=== PATIENT | male | born 1960 | race Caucasian/White ===

== ENCOUNTER 2017-03-23 18:45 | Observation (INO) | payer OTHER ==
[~2017-03-23] VITALS: Ht 182.9 cm; Wt 124.6 kg
[~2017-03-23 18:45] MED LIST: ALBUTEROL17 GM IH; ASPIR-TRIN325 MG PO; ATORVASTATIN CA80 MG PO; CARVEDILOL3.125 MG PO; CHILDREN'S ASPI81 M1 PO; CIPRO500 MG PO; CIPROFLOXACIN500 M1 PO; CLOPIDOGREL75 MG PO; CRESTOR5 MG PO; CYCLOBENZAPRINE10 MG PO; DIAZEPAM10 MG PO; DILAUDID2 MG PO; FLEXERIL10 MG PO; FLOMAX0.4 MG PO; FLUOXETINE HCL10 MG PO; FLUOXETINE HCL20 M1 PO; GABAPENTIN600 MG PO; INDOMETHACIN50 MG PO; LITE COAT ASPI325 M1 PO; LOPRESSOR25 MG PO; LOPRESSOR50 MG PO; MOBIC15 MG PO; NEURONTIN600 MG PO; NITROSTAT0.4 MG SL; OXYCODONE HCL10 MG PO; OXYCODONE HCL30 MG PO; OXYCODONE-APAP1 EACH PO; PERCOCET 10-321 EACH PO; PERCOCET 10/1 TABLET PO; PERCOCET 5-3251 EACH PO; PERCOCET 5/31 TABLET PO; PLAVIX75 MG PO; PROVENTIL HFA6.7 GM IH; PROZAC10 MG PO; STOOL SOFTENER100 MG PO; ULTRAM50 MG PO; VALIUM5 MG PO
[2017-03-23 19:09] LABS: POINT-OF-CARE METER ID UU13113702
[2017-03-23 19:44] LABS: HEMATOCRIT 47.1 % (38.0-50.0); MCH 32.9 PG (29.0-34.0); MCV 93.8 FL (86-99); PLATELET COUNT 224 K/uL (156-360); RBC DIS.WIDTH-CV 12.1 % (11.8-14.6); RBC DIS.WIDTH-SD 41.6 % (39-53); RED BLOOD COUNT 5.02 M/uL (4.00-5.50); WHITE BLOOD COUNT 6.9 K/uL (4.1-10.2)
[2017-03-23 19:55] LABS: CHLORIDE 107 mEq/L (99-109); POTASSIUM 4.3 mEq/L (3.7-5.4); SODIUM 140 mEq/L (136-147)
[2017-03-23 19:57] LABS: GLUCOSE 96 mg/dL (70-99)
[2017-03-23 19:58] LABS: ANION GAP 7 MEQ/L (2-14)
[2017-03-23 20:01] LABS: GFR ESTIMATE (CALCULATED) > 59 mL/min/
[2017-03-23 20:02] LABS: UREA NITROGEN (BUN) 12 mg/dL (9-23)
[2017-03-23 20:04] LABS: TROP-I INTERPRETATION NEGATIVE; TROPONIN-I 0.01 ng/mL (0.0-0.30)
[2017-03-23] MEDS ORDERED: ROXICODONE15 MG PO (22:13)
[2017-03-24 00:29] VITALS: BP 167/95
[2017-03-24 02:42] LABS: TROP-I INTERPRETATION NEGATIVE; TROPONIN-I < 0.01 ng/mL (0.0-0.30)
[2017-03-24 02:55] VITALS: BP 123/68
[2017-03-24 03:05] LABS: HDL CHOLESTEROL 35 MG/DL (Desirable>=40); LDL CHOLESTEROL 88 mg/dL (Desirable<100); NON-HDL CHOLESTEROL 118 mg/dL (Desirable<160); TOTAL CHOLESTEROL 153 mg/dL (Desirable<200); TRIGLYCERIDES 149 MG/DL (Normal: <150)
[2017-03-24 03:40] LABS: ADD MIUA? YES; BILIRUBIN NEGATIVE; BLOOD SMALL; COLOR STRAW ((YELLOW)); GLUCOSE (STRIP) NEGATIVE; KETONES NEGATIVE; LEUKOCYTES NEGATIVE; NITRITE NEGATIVE; PROTEIN (STRIP) NEGATIVE; SPECIFIC GRAVITY 1.004 (1.000-1.030); UROBILINOGEN 0.2 MG/DL (0.2-1.0)
[2017-03-24 03:41] LABS: AMPHETAMINES QUANT VALUE 0 NG/ML; BARBITUATES QUANT VALUE 0 NG/ML; BENZODIAZEPINES QUANT VALUE 0 NG/ML; BENZODIAZEPINES, URINE SCREEN Negative (200 ng/mL); PHENCYCLIDINE QUANT VALUE 0 NG/ML
[2017-03-24 03:50] LABS: BACTERIA NONE SEEN /HPF; EPITHELIAL CELLS RARE /HPF; MUCUS NONE SEEN /LPF; UCUL ADDED? NO; WHITE BLOOD CELLS 0-5 /HPF (0-5)
[2017-03-24 08:47] VITALS: BP 128/65
[2017-03-24 09:02] LABS: TROP-I INTERPRETATION NEGATIVE; TROPONIN-I < 0.01 ng/mL (0.0-0.30)
[2017-03-24] MEDS ORDERED: ATORVASTATIN CA80 MG PO (09:33)
[2017-03-24] MEDS ORDERED: NICOTINE PATCH1 EAC1 TD (09:33)
== END 2017-03-24 11:15 | disposition home or self-care (01) ==
LOC: EME 18:45 → 5WEST 22:36 → EDOF 22:36 → 5WEST 03-24 00:12
PROVIDERS: Emergency Medicine; Physician Assistant Medical
DX: R07.89 Other chest pain (principal); F12.90 Cannabis use, unspecified, uncomplicated; J44.9 Chronic obstructive pulmonary disease, unspecified; I10 Essential (primary) hypertension; E78.5 Hyperlipidemia, unspecified; I25.10 Atherosclerotic heart disease of native coronary artery without angina pectoris; I25.2 Old myocardial infarction; G89.29 Other chronic pain; M54.5 Low back pain; F41.9 Anxiety disorder, unspecified; F32.9 Major depressive disorder, single episode, unspecified; E66.01 Morbid (severe) obesity due to excess calories; F17.200 Nicotine dependence, unspecified, uncomplicated; F14.10 Cocaine abuse, uncomplicated; F11.10 Opioid abuse, uncomplicated; F12.10 Cannabis abuse, uncomplicated; F13.10 Sedative, hypnotic or anxiolytic abuse, uncomplicated; Z68.38 Body mass index [BMI] 38.0-38.9, adult
CPT/HCPCS: 71020; 80048; 80061; 80306 90; 81003; 82948; 83880; 84484; 85027; 93005; 99281; 99285; G0378; J1650; J7030

== ENCOUNTER 2017-08-03 15:00 | Emergency (ER) | payer OTHER ==
[~2017-08-03] VITALS: Ht 182.9 cm; Wt 122.7 kg
[~2017-08-03 15:00] MED LIST changes: +NICOTINE PATCH1 EAC1 TD; +ROXICODONE15 MG PO
[2017-08-03] MEDS ORDERED: VALIUM5 MG PO (16:28)
[2017-08-03] MEDS ORDERED: PREDNISONE20 MG PO (16:28)
[2017-08-03 17:05] VITALS: BP 145/87
== END 2017-08-03 17:12 | disposition home or self-care (01) ==
LOC: EME 15:00
DX: M54.42 Lumbago with sciatica, left side (principal); G89.29 Other chronic pain; I10 Essential (primary) hypertension; J44.9 Chronic obstructive pulmonary disease, unspecified; Z87.442 Personal history of urinary calculi; Z90.49 Acquired absence of other specified parts of digestive tract; Z79.82 Long term (current) use of aspirin; F17.200 Nicotine dependence, unspecified, uncomplicated
CPT/HCPCS: 99281; 99284; J3010; J7512

== ENCOUNTER 2017-09-16 13:31 | Emergency (ER) | payer OTHER ==
[~2017-09-16] VITALS: Ht 182.9 cm; Wt 107.9 kg
[~2017-09-16 13:31] MED LIST changes: +PREDNISONE20 MG PO
[2017-09-16 15:08] LABS: HEMATOCRIT 46.4 % (38.0-50.0); MCH 33.7 PG (29.0-34.0); MCHC 35.6 G/DL (30.0-36.0); MCV 94.7 FL (86-99); PLATELET COUNT 203 K/uL (156-360); RBC DIS.WIDTH-CV 11.9 % (11.8-14.6); RBC DIS.WIDTH-SD 41.5 % (39-53); WHITE BLOOD COUNT 7.9 K/uL (4.1-10.2)
[2017-09-16 15:19] LABS: CHLORIDE 108 mEq/L (99-109); POTASSIUM 4.1 mEq/L (3.7-5.4); SODIUM 142 mEq/L (136-147)
[2017-09-16 15:20] LABS: ADD MEDTOX COMMENT Y; AMPHETAMINE NEGATIVE (500 ng/mL); BARBITURATES NEGATIVE (200 ng/mL); BENZODIAZEPINES PRESUMPTIVE POSITIVE (150 ng/mL); COCAINE PRESUMPTIVE POSITIVE (150 ng/mL); INTERNAL CONTROLS VALID? YES; METHADONE NEGATIVE (200 ng/mL); METHAMPHETAMINE NEGATIVE (500 ng/mL); OPIATES (MORPHINE) NEGATIVE (100 ng/mL); OXYCODONE PRESUMPTIVE POSITIVE (100 ng/mL); PHENCYCLIDINE NEGATIVE (25 ng/mL); PROPOXYPHENE NEGATIVE (300 ng/mL); THC CANNABINOIDS PRESUMPTIVE POSITIVE (50 ng/mL); TRICYCLIC ANTIDEPRESSANTS NEGATIVE (300 ng/mL)
[2017-09-16 15:22] LABS: GLUCOSE 110 mg/dL (70-99)
[2017-09-16 15:23] LABS: ANION GAP 8 MEQ/L (2-14)
[2017-09-16 15:24] LABS: TOTAL BILIRUBIN 0.5 mg/dL (0.0-1.0)
[2017-09-16 15:25] LABS: ALKALINE PHOSPHATASE 85 IU/L (3-129)
[2017-09-16 15:26] LABS: GFR ESTIMATE (CALCULATED) > 59 mL/min/
[2017-09-16 15:27] LABS: UREA NITROGEN (BUN) 13 mg/dL (9-23)
[2017-09-16 15:32] LABS: TROP-I INTERPRETATION NEGATIVE; TROPONIN-I < 0.01 ng/mL (0.0-0.30)
[2017-09-16 15:54] LABS: BENZODIAZEPINES QUANT VALUE 0 NG/ML; BENZODIAZEPINES, URINE SCREEN Negative (200 ng/mL)
[2017-09-16 18:23] LABS: TROP-I INTERPRETATION NEGATIVE; TROPONIN-I < 0.01 ng/mL (0.0-0.30)
[2017-09-16 18:56] VITALS: BP 137/86
[2017-09-16 22:09] LABS: ADD MIUA? YES; BILIRUBIN NEGATIVE; BLOOD SMALL; COLOR YELLOW ((YELLOW)); GLUCOSE (STRIP) NEGATIVE; KETONES NEGATIVE; LEUKOCYTES NEGATIVE; NITRITE NEGATIVE; PROTEIN (STRIP) 100; SPECIFIC GRAVITY 1.024 (1.000-1.030); UROBILINOGEN 0.2 MG/DL (0.2-1.0)
[2017-09-16 22:30] LABS: RED BLOOD CELLS NONE SEEN /HPF (0-5)
[2017-09-16 22:31] LABS: BACTERIA 1+ /HPF; CASTS PRESENT /LPF; CRYSTALS NONE SEEN; EPITHELIAL CELLS 1+ /HPF; MUCUS 2+ /LPF; UCUL ADDED? YES
[2017-09-16 22:33] LABS: HYALINE CASTS 0-5 /LPF
[2017-09-16 22:34] LABS: COARSE GRANULAR CASTS RARE /LPF
== END 2017-09-16 18:58 | disposition home or self-care (01) ==
LOC: EME 13:31
PROVIDERS: Emergency Medicine
DX: F11.10 Opioid abuse, uncomplicated (principal); F14.10 Cocaine abuse, uncomplicated; F12.10 Cannabis abuse, uncomplicated; J44.9 Chronic obstructive pulmonary disease, unspecified; E78.5 Hyperlipidemia, unspecified; I10 Essential (primary) hypertension; I25.2 Old myocardial infarction; F17.200 Nicotine dependence, unspecified, uncomplicated; F32.9 Major depressive disorder, single episode, unspecified; F41.9 Anxiety disorder, unspecified; Z95.5 Presence of coronary angioplasty implant and graft
CPT/HCPCS: 71010; 80053; 81003; 84484; 84999; 85027; 87086; 93005; 99281; 99284

== ENCOUNTER 2018-05-01 14:16 | Observation (INO) | payer OTHER ==
[~2018-05-01] VITALS: Ht 182.9 cm; Wt 118.3 kg
[~2018-05-01 14:16] MED LIST changes: -ROXICODONE15 MG PO
[2018-05-01 15:05] LABS: HEMATOCRIT 47.9 % (38.0-50.0); HEMOGLOBIN 17.3 G/DL (12.5-16.6); MCH 34.1 PG (29.0-34.0); MCHC 36.1 G/DL (30.0-36.0); MCV 94.5 FL (86-99); PLATELET COUNT 204 K/uL (156-360); RBC DIS.WIDTH-CV 12.1 % (11.8-14.6); RBC DIS.WIDTH-SD 42.4 % (39-53); RED BLOOD COUNT 5.07 M/uL (4.00-5.50); WHITE BLOOD COUNT 6.4 K/uL (4.1-10.2)
[2018-05-01 15:13] LABS: CHLORIDE 108 mEq/L (99-109); SODIUM 141 mEq/L (136-147)
[2018-05-01 15:15] LABS: GLUCOSE 120 mg/dL (70-99)
[2018-05-01 15:19] LABS: CREATININE 0.9 mg/dL (0.6-1.3); GFR ESTIMATE (CALCULATED) > 59 mL/min/ (58.99-99999)
[2018-05-01 15:20] LABS: UREA NITROGEN (BUN) 12 mg/dL (9-23)
[2018-05-01 15:26] LABS: TROP-I INTERPRETATION NEGATIVE; TROPONIN-I 0.02 ng/mL (0.0-0.30)
[2018-05-01] MEDS ORDERED: LO-DOSE ASPIRIN81 M2 PO (18:59)
[2018-05-01] MEDS ORDERED: XTAMPZA ER13.5 MG PO (19:05)
[2018-05-01 22:16] VITALS: BP 157/82
[2018-05-02 01:14] LABS: TROP-I INTERPRETATION NEGATIVE; TROPONIN-I 0.02 ng/mL (0.0-0.30)
[2018-05-02 05:18] LABS: HEMATOCRIT 44.4 % (38.0-50.0); HEMOGLOBIN 15.9 G/DL (12.5-16.6); MCH 34.3 PG (29.0-34.0); MCHC 35.8 G/DL (30.0-36.0); MCV 95.9 FL (86-99); PLATELET COUNT 185 K/uL (156-360); RBC DIS.WIDTH-CV 12.2 % (11.8-14.6); RBC DIS.WIDTH-SD 42.9 % (39-53); RED BLOOD COUNT 4.63 M/uL (4.00-5.50); WHITE BLOOD COUNT 6.5 K/uL (4.1-10.2)
[2018-05-02 05:29] LABS: CHLORIDE 106 mEq/L (99-109); POTASSIUM 4.1 mEq/L (3.7-5.4); SODIUM 142 mEq/L (136-147)
[2018-05-02 05:34] LABS: TROP-I INTERPRETATION NEGATIVE; TROPONIN-I 0.01 ng/mL (0.0-0.30)
[2018-05-02 05:35] LABS: GFR ESTIMATE (CALCULATED) > 59 mL/min/ (58.99-99999)
[2018-05-02 05:36] LABS: UREA NITROGEN (BUN) 12 mg/dL (9-23)
[2018-05-02 05:57] LABS: GLUCOSE 85 mg/dL (70-99)
[2018-05-02 08:15] VITALS: BP 132/80
[2018-05-02 11:06] LABS: ERTH.SED.RATE 16 MM/HR (0-20)
[2018-05-02 11:18] VITALS: BP 169/90
[2018-05-02 14:58] VITALS: BP 115/54
[2018-05-03 00:24] VITALS: BP 130/72
[2018-05-03] MEDS ORDERED: NITROSTAT0.4 MG SL (04:55)
[2018-05-03 05:13] VITALS: BP 109/55
[2018-05-03 08:18] VITALS: BP 119/78
[2018-05-03 08:20] VITALS: BP 119/78
[2018-05-03] MEDS ORDERED: AMLODIPINE BESYL5 MG PO (09:38)
[2018-05-03] MEDS ORDERED: ATORVASTATIN CA40 MG PO (10:18)
== END 2018-05-03 12:53 | disposition home or self-care (01) ==
LOC: EME 14:16 → EDOF 18:22 → 4SOUTH 18:22 → ENRESERV 18:25 → 4SOUTH 22:04
PROVIDERS: Hospitalist
DX: R07.9 Chest pain, unspecified (principal); I25.10 Atherosclerotic heart disease of native coronary artery without angina pectoris; Z95.5 Presence of coronary angioplasty implant and graft; Z91.14 Patient's other noncompliance with medication regimen; Z91.19 Patient's noncompliance with other medical treatment and regimen; F14.10 Cocaine abuse, uncomplicated; Z79.82 Long term (current) use of aspirin; I10 Essential (primary) hypertension; F17.210 Nicotine dependence, cigarettes, uncomplicated; I25.2 Old myocardial infarction; R41.0 Disorientation, unspecified; E78.5 Hyperlipidemia, unspecified; F32.9 Major depressive disorder, single episode, unspecified; Z59.0 Homelessness; Z87.442 Personal history of urinary calculi
CPT/HCPCS: 70450; 70486; 70551; 71046; 71275; 80048; 80306 90; 84484; 85027; 85651; 93005; 99281; 99284; C1769; C1887; C1894; G0378; J1644; J1650; J2250; J2270; J2405; J3010; Q0169